=== PATIENT | male | born 1945 | race Caucasian/White ===

== ENCOUNTER → 2017-12-26 | Outpatient (CLI) | payer MEDICARE ==
[~2017-12-26] MED LIST: ASPIRIN ADULT L81 M1; FOLIC ACID0.8 MG; MOBIC15 MG; MULTIPLE VITAMI1 CAP; NORVASC5 MG; TENORMIN50 MG; ZANTAC150 MG PO; ZOCOR5 MG
[2017-12-26 11:58] LABS: CREATININE 1.14 mg/dL (0.70-1.30)
== END | disposition home or self-care (01) ==
LOC: LAB 11:12
PROVIDERS: Internal Medicine
DX: R06.02 Shortness of breath (principal)

== ENCOUNTER → 2018-01-02 | Outpatient (CLI) | payer MEDICARE | END | disposition home or self-care (01) | LOC: CT 10:09 | DX: M54.6 Pain in thoracic spine (principal); R06.02 Shortness of breath ==

== ENCOUNTER → 2018-02-20 | Outpatient (CLI) | payer MEDICARE | END | disposition home or self-care (01) | LOC: LAB 12:54 | DX: C61 Malignant neoplasm of prostate (principal) ==

== ENCOUNTER → 2018-02-27 | Outpatient (CLI) | payer MEDICARE | END | disposition home or self-care (01) | LOC: CT 14:23 | DX: M51.34 Other intervertebral disc degeneration, thoracic region (principal) ==

== ENCOUNTER → 2018-03-26 | Outpatient (CLI) | payer MEDICARE ==
[2018-03-26 08:49] LABS: BASO % 0.7 % (0.0-1.0); EOS # 0.2 10*3/uL (0.0-0.4); EOS % 3.1 % (1.0-4.0); HEMATOCRIT 42.9 % (42.0-52.0); HEMOGLOBIN 14.1 g/dl (14.0-18.0); LYMPH # 1.8 10*3/uL (1.3-4.4); LYMPH % 31.4 % (27.0-41.0); MEAN CELL VOLUME 87.7 fl (80.0-94.0); MEAN CORPUSCULAR HGB 28.8 pg (27.0-31.0); MEAN CORPUSCULAR HGB CONC 32.9 g/dl (33.0-37.0); MEAN PLATELET VOLUME 11.1 fl (9.6-12.3); MONO # 0.6 10*3/uL (0.1-1.0); MONO % 9.6 % (3.0-9.0); NEUT # 3.2 10*3/uL (2.3-7.9); PLATELET COUNT AUTOMATED 225 10*3/uL (130-400); RED BLOOD COUNT 4.89 10*6/uL (4.50-5.90); RED CELL DISTRI WIDTH 14.4 % (0-14.5); WHITE BLOOD COUNT 5.8 10*3/uL (4.8-10.8)
[2018-03-26 08:56] LABS: ALBUMIN 3.8 gm/dl (3.1-4.5); ALKALINE PHOSPHATASE 58 U/L (45-117); BUN 17 mg/dl (7-24); CHLORIDE 106 mmol/L (98-107); CHOLESTEROL 144 mg/dL (<200); CREATININE 1.22 mg/dL (0.70-1.30); FREE T4 0.95 ng/dl (0.76-1.46); HDL CHOLESTEROL 53 mg/dl (40-60); LDL CHOLESTEROL 71 mg/dL (9-159); SGOT/AST 23 IU/L (3-35); SGPT/ALT 31 U/L (12-78); SODIUM 143 mmol/L (136-145); TOTAL PROTEIN 6.8 gm/dL (6.4-8.2); TRIGLYCERIDES 98 mg/dl (<150); VLDL CHOLESTEROL 20 mg/dL (6-40)
[2018-03-26 10:14] LABS: VITAMIN D, 25-HYDROXY 35.9 ng/mL (30-100)
== END ==
LOC: LAB 07:56
PROVIDERS: Internal Medicine
DX: Z13.1 Encounter for screening for diabetes mellitus (principal); Z13.21 Encounter for screening for nutritional disorder; Z13.220 Encounter for screening for lipoid disorders; E78.2 Mixed hyperlipidemia; E55.9 Vitamin D deficiency, unspecified; R53.81 Other malaise

== ENCOUNTER → 2018-07-25 | Outpatient (CLI) | payer MEDICARE | END | disposition home or self-care (01) | LOC: MRI 09:59 | DX: M47.894 Other spondylosis, thoracic region (principal); Z85.46 Personal history of malignant neoplasm of prostate ==

== ENCOUNTER → 2019-07-11 | Outpatient (CLI) | payer MEDICARE | END | disposition home or self-care (01) | LOC: LAB 09:42 | DX: C61 Malignant neoplasm of prostate (principal) ==

== ENCOUNTER → 2020-06-03 | Outpatient (CLI) | payer MEDICARE ==
[2020-06-03 11:08] LABS: BASO % 0.6 % (0.0-1.0); EOS # 0.2 10*3/uL (0.0-0.4); EOS % 3.6 % (1.0-4.0); LYMPH # 1.9 10*3/uL (1.3-4.4); LYMPH % 29.9 % (27.0-41.0); MEAN CELL VOLUME 87.1 fl (80.0-94.0); MEAN CORPUSCULAR HGB 28.7 pg (27.0-31.0); MEAN PLATELET VOLUME 10.4 fl (9.6-12.3); MONO # 0.5 10*3/uL (0.1-1.0); MONO % 8.7 % (3.0-9.0); NEUT # 3.5 10*3/uL (2.3-7.9); PLATELET COUNT AUTOMATED 241 10*3/uL (130-400); RED BLOOD COUNT 5.05 10*6/uL (4.50-5.90); RED CELL DISTRI WIDTH 13.9 % (0-14.5); WHITE BLOOD COUNT 6.2 10*3/uL (4.8-10.8)
[2020-06-03 11:35] LABS: ALBUMIN 3.6 gm/dl (3.1-4.5); ALKALINE PHOSPHATASE 78 U/L (45-117); BUN 15 mg/dl (7-24); CHLORIDE 105 mmol/L (98-107); CHOLESTEROL 189 mg/dL (<200); CREATININE 1.19 mg/dL (0.70-1.30); FREE T4 1.01 ng/dl (0.76-1.46); HDL CHOLESTEROL 45 mg/dl (40-60); LDL CHOLESTEROL 110 mg/dL (9-159); POTASSIUM 3.8 mmol/L (3.5-5.1); SGOT/AST 21 IU/L (3-35); SGPT/ALT 27 U/L (12-78); SODIUM 139 mmol/L (136-145); TOTAL PROTEIN 7.2 gm/dL (6.4-8.2); TRIGLYCERIDES 168 mg/dl (<150); VLDL CHOLESTEROL 34 mg/dL (6-40)
== END | disposition home or self-care (01) ==
LOC: LAB 10:14
PROVIDERS: Internal Medicine
DX: Z00.00 Encounter for general adult medical examination without abnormal findings (principal); I10 Essential (primary) hypertension; E55.9 Vitamin D deficiency, unspecified

== ENCOUNTER → 2020-08-06 | Outpatient (CLI) | payer MEDICARE ==
[2020-08-06 14:16] LABS: BACTERIA TRACE; BILIRUBIN Negative; BLOOD 2+ (NEGATIVE); CLARITY Clear (CLEAR); COLOR Yellow (YELLOW); GLUCOSE Negative; KETONE Negative; LEUKO ESTERASE Negative (NEGATIVE); NITRITE Negative (NEGATIVE); SPECIFIC GRAVITY 1.025 (1.001-1.030); WBC 0-2 wbc/hpf (0-5)
[2020-08-06 14:17] LABS: MUCOUS TRACE
== END | disposition home or self-care (01) ==
LOC: LAB 13:13
PROVIDERS: ATTEND Urology
DX: C61 Malignant neoplasm of prostate (principal)

== ENCOUNTER → 2020-08-10 | Outpatient (CLI) | payer MEDICARE | END | disposition home or self-care (01) | LOC: CARD 08:56 | PROVIDERS: ATTEND Internal Medicine | DX: R00.2 Palpitations (principal) ==

== ENCOUNTER → 2020-08-25 | Outpatient (CLI) | payer MEDICARE | END | disposition home or self-care (01) | LOC: CARD 11:42 | PROVIDERS: ATTEND Internal Medicine | DX: R06.02 Shortness of breath (principal) ==

== ENCOUNTER → 2020-11-02 | Outpatient (CLI) | payer MEDICARE ==
[2020-11-02 08:46] LABS: BUN 14 mg/dl (7-24); CHLORIDE 108 mmol/L (98-107); CREATININE 1.21 mg/dL (0.70-1.30); POTASSIUM 4.2 mmol/L (3.5-5.1); SODIUM 141 mmol/L (136-145)
== END | disposition home or self-care (01) ==
LOC: LAB 08:03
PROVIDERS: ATTEND Internal Medicine Interventional Cardiology
DX: I10 Essential (primary) hypertension (principal)

== ENCOUNTER → 2020-11-27 | Outpatient (CLI) | payer MEDICARE | END | disposition home or self-care (01) | LOC: RAD 08:07 | PROVIDERS: ATTEND Internal Medicine | DX: M25.559 Pain in unspecified hip (principal) ==

== ENCOUNTER → 2020-12-04 | Outpatient (CLI) | payer MEDICARE ==
[2020-12-04 14:08] LABS: ALBUMIN 3.8 gm/dl (3.1-4.5); ALKALINE PHOSPHATASE 69 U/L (45-117); BUN 20 mg/dl (7-24); CHLORIDE 105 mmol/L (98-107); CREATININE 1.21 mg/dL (0.70-1.30); POTASSIUM 3.9 mmol/L (3.5-5.1); SGOT/AST 21 IU/L (3-35); SGPT/ALT 31 U/L (12-78); SODIUM 140 mmol/L (136-145); TOTAL PROTEIN 7.3 gm/dL (6.4-8.2)
== END | disposition home or self-care (01) ==
LOC: LAB 13:19
PROVIDERS: ATTEND Orthopaedic Surgery
DX: I10 Essential (primary) hypertension (principal); Z79.1 Long term (current) use of non-steroidal anti-inflammatories (NSAID)

== ENCOUNTER → 2021-03-15 | Outpatient (CLI) | payer MEDICARE | END | disposition home or self-care (01) | LOC: US 10:45 | PROVIDERS: ATTEND Internal Medicine | DX: N28.1 Cyst of kidney, acquired (principal) ==

== ENCOUNTER → 2021-06-04 | Outpatient (CLI) | payer MEDICARE ==
[2021-06-04 11:05] LABS: BASO % 0.6 % (0.0-1.0); EOS # 0.2 10*3/uL (0.0-0.4); EOS % 2.6 % (1.0-4.0); HEMATOCRIT 43.7 % (42.0-52.0); LYMPH # 1.7 10*3/uL (1.3-4.4); LYMPH % 23.6 % (27.0-41.0); MEAN CORPUSCULAR HGB 29.6 pg (27.0-31.0); MEAN CORPUSCULAR HGB CONC 32.5 g/dl (33.0-37.0); MEAN PLATELET VOLUME 10.7 fl (9.6-12.3); MONO # 0.6 10*3/uL (0.1-1.0); MONO % 8.5 % (3.0-9.0); NEUT # 4.5 10*3/uL (2.3-7.9); NEUT % 64.4 % (47.0-73.0); PLATELET COUNT AUTOMATED 223 10*3/uL (130-400); RED CELL DISTRI WIDTH 13.4 % (0-14.5)
[2021-06-04 11:34] LABS: ALBUMIN 3.5 gm/dl (3.1-4.5); BUN 13 mg/dl (7-24); CHLORIDE 108 mmol/L (98-107); CHOLESTEROL 177 mg/dL (<200); CREATININE 1.05 mg/dL (0.70-1.30); POTASSIUM 3.7 mmol/L (3.5-5.1); SGOT/AST 22 IU/L (3-35); SGPT/ALT 25 U/L (12-78); SODIUM 139 mmol/L (136-145); TOTAL PROTEIN 6.7 gm/dL (6.4-8.2); TRIGLYCERIDES 197 mg/dl (<150)
[2021-06-04 11:40] LABS: ALKALINE PHOSPHATASE 60 U/L (45-117); LDL CHOLESTEROL 92 mg/dL (9-159)
[2021-06-04 11:41] LABS: VITAMIN D, 25-HYDROXY 41.1 ng/mL (30-100)
== END | disposition home or self-care (01) ==
LOC: LAB 10:36
PROVIDERS: ATTEND Internal Medicine
DX: Z12.5 Encounter for screening for malignant neoplasm of prostate (principal); R53.81 Other malaise; R79.89 Other specified abnormal findings of blood chemistry; E55.9 Vitamin D deficiency, unspecified; D51.9 Vitamin B12 deficiency anemia, unspecified; E03.9 Hypothyroidism, unspecified; D52.9 Folate deficiency anemia, unspecified; Z13.0 Encounter for screening for diseases of the blood and blood-forming organs and certain disorders involving the immune mechanism; Z13.1 Encounter for screening for diabetes mellitus; Z13.21 Encounter for screening for nutritional disorder; Z13.220 Encounter for screening for lipoid disorders; Z13.228 Encounter for screening for other metabolic disorders; Z13.6 Encounter for screening for cardiovascular disorders; Z13.89 Encounter for screening for other disorder

== ENCOUNTER → 2021-10-13 | Outpatient (CLI) | payer MEDICARE | END | disposition home or self-care (01) | LOC: CARD 10:01 | PROVIDERS: ATTEND Internal Medicine | DX: R55 Syncope and collapse (principal) ==

== ENCOUNTER → 2022-03-14 | Outpatient (CLI) | payer MEDICARE ==
[2022-03-14 08:51] LABS: BASO % 0.7 % (0.0-1.0); EOS # 0.3 10*3/uL (0.0-0.4); EOS % 5.6 % (1.0-4.0); HEMATOCRIT 42.4 % (42.0-52.0); LYMPH # 1.4 10*3/uL (1.3-4.4); LYMPH % 23.8 % (27.0-41.0); MEAN CELL VOLUME 88.3 fl (80.0-94.0); MEAN CORPUSCULAR HGB 29.2 pg (27.0-31.0); MEAN PLATELET VOLUME 10.3 fl (9.6-12.3); MONO # 0.6 10*3/uL (0.1-1.0); MONO % 9.6 % (3.0-9.0); NEUT # 3.6 10*3/uL (2.3-7.9); PLATELET COUNT AUTOMATED 214 10*3/uL (130-400); RED CELL DISTRI WIDTH 13.7 % (0-14.5); WHITE BLOOD COUNT 6.1 10*3/uL (4.8-10.8)
[2022-03-14 09:13] LABS: BUN 18 mg/dl (7-24); CHLORIDE 109 mmol/L (98-107); CHOLESTEROL 177 mg/dL (<200); CREATININE 1.09 mg/dL (0.70-1.30); POTASSIUM 3.7 mmol/L (3.5-5.1); SGOT/AST 18 IU/L (3-35); SGPT/ALT 29 U/L (12-78); SODIUM 142 mmol/L (136-145); T3 UPTAKE 36 % (31-39); TOTAL PROTEIN 6.8 gm/dL (6.4-8.2); TRIGLYCERIDES 129 mg/dl (<150)
[2022-03-14 10:18] LABS: VITAMIN D, 25-HYDROXY 32.9 ng/mL (30-100)
[2022-03-14 10:28] LABS: ALKALINE PHOSPHATASE 60 U/L (45-117); LDL CHOLESTEROL 104 mg/dL (9-159)
== END | disposition home or self-care (01) ==
LOC: LAB 08:16
PROVIDERS: ATTEND Internal Medicine
DX: I10 Essential (primary) hypertension (principal); Z23 Encounter for immunization; Z12.5 Encounter for screening for malignant neoplasm of prostate; E78.2 Mixed hyperlipidemia; Z13.89 Encounter for screening for other disorder; E55.9 Vitamin D deficiency, unspecified

== ENCOUNTER → 2022-04-04 | Outpatient (CLI) | payer MEDICARE | END | disposition home or self-care (01) | LOC: US 13:30 | PROVIDERS: ATTEND Internal Medicine | DX: I87.2 Venous insufficiency (chronic) (peripheral) (principal); R60.0 Localized edema ==

== ENCOUNTER → 2022-04-13 | Outpatient (CLI) | payer MEDICARE | END | disposition home or self-care (01) | LOC: CARD 09:56 | PROVIDERS: ATTEND Internal Medicine | DX: I08.0 Rheumatic disorders of both mitral and aortic valves (principal) ==

== ENCOUNTER 2022-05-02 14:57 | Inpatient (IN) | payer MEDICARE ==
[~2022-05-02] VITALS: Ht 182.9 cm; Wt 84.4 kg
[~2022-05-02 14:57] MED LIST changes: -MOBIC15 MG; +MOBIC7.5 MG PO; +ZOCOR20 MG PO; -ZOCOR5 MG
[2022-05-02 15:05] VITALS: BP 182/84
[2022-05-02 15:28] LABS: BASO % 0.4 % (0.0-1.0); EOS # 0.1 10*3/uL (0.0-0.4); EOS % 0.8 % (1.0-4.0); LYMPH % 12.3 % (27.0-41.0); MEAN CELL VOLUME 87.9 fl (80.0-94.0); MEAN CORPUSCULAR HGB 28.7 pg (27.0-31.0); MEAN CORPUSCULAR HGB CONC 32.7 g/dl (33.0-37.0); MEAN PLATELET VOLUME 10.6 fl (9.6-12.3); MONO # 0.4 10*3/uL (0.1-1.0); MONO % 4.6 % (3.0-9.0); NEUT # 6.9 10*3/uL (2.3-7.9); NEUT % 81.7 % (47.0-73.0); PLATELET COUNT AUTOMATED 217 10*3/uL (130-400); RED BLOOD COUNT 5.12 10*6/uL (4.50-5.90); RED CELL DISTRI WIDTH 14.1 % (0-14.5); WHITE BLOOD COUNT 8.5 10*3/uL (4.8-10.8)
[2022-05-02 15:40] LABS: ACT PARTIAL THROMBO TIME 24.9 SECONDS (20.0-32.1)
[2022-05-02 15:46] LABS: ALKALINE PHOSPHATASE 58 U/L (45-117); BUN 15 mg/dl (7-24); CHLORIDE 111 mmol/L (98-107); CREATININE 1.14 mg/dL (0.70-1.30); LIPASE 222 U/L (73-393); POTASSIUM 4.1 mmol/L (3.5-5.1); SGOT/AST 16 IU/L (3-35); SGPT/ALT 21 U/L (12-78); SODIUM 143 mmol/L (136-145); TOTAL PROTEIN 6.6 gm/dL (6.4-8.2)
[2022-05-02 17:16] VITALS: BP 176/82
[2022-05-02 18:28] VITALS: BP 160/77
[2022-05-02 19:45] VITALS: BP 147/73
[2022-05-02 20:05] VITALS: BP 141/70
[2022-05-02] MEDS ORDERED: COREG12.5 M1 PO (20:29)
[2022-05-02] MEDS ORDERED: LISINOPRIL10 M1 PO (20:31)
[2022-05-03 02:00] VITALS: BP 142/78
[2022-05-03 05:23] LABS: BUN 19 mg/dl (7-24); CHLORIDE 114 mmol/L (98-107); CREATININE 1.31 mg/dL (0.70-1.30); POTASSIUM 3.6 mmol/L (3.5-5.1); SODIUM 144 mmol/L (136-145)
[2022-05-03 06:03] LABS: BASO % 0.4 % (0.0-1.0); EOS % 0.4 % (1.0-4.0); HEMATOCRIT 41.7 % (42.0-52.0); LYMPH # 1.3 10*3/uL (1.3-4.4); LYMPH % 13.8 % (27.0-41.0); MEAN CELL VOLUME 89.1 fl (80.0-94.0); MEAN CORPUSCULAR HGB 28.8 pg (27.0-31.0); MEAN CORPUSCULAR HGB CONC 32.4 g/dl (33.0-37.0); MEAN PLATELET VOLUME 11.3 fl (9.6-12.3); MONO # 0.9 10*3/uL (0.1-1.0); MONO % 9.2 % (3.0-9.0); NEUT # 7.3 10*3/uL (2.3-7.9); NEUT % 75.9 % (47.0-73.0); PLATELET COUNT AUTOMATED 210 10*3/uL (130-400); RED BLOOD COUNT 4.68 10*6/uL (4.50-5.90); RED CELL DISTRI WIDTH 14.6 % (0-14.5); WHITE BLOOD COUNT 9.6 10*3/uL (4.8-10.8)
[2022-05-03 08:00] VITALS: BP 88/36
[2022-05-03 12:00] VITALS: BP 152/70
[2022-05-03 16:00] VITALS: BP 163/70
[2022-05-03 20:00] VITALS: BP 168/79
[2022-05-04] VITALS: BP 168/70
[2022-05-04 07:06] LABS: BUN 18 mg/dl (7-24); CHLORIDE 114 mmol/L (98-107); CREATININE 1.23 mg/dL (0.70-1.30); POTASSIUM 3.3 mmol/L (3.5-5.1); SODIUM 145 mmol/L (136-145)
[2022-05-04] MEDS ORDERED: 'CLONIDINE0.1 MG PO (07:36)
[2022-05-04 08:00] VITALS: BP 178/72
[2022-05-04 12:00] VITALS: BP 169/77
== END 2022-05-04 13:14 | disposition home or self-care (01) | DRG 312 ==
LOC: ED 14:57 → 4E 18:14 → EDHOLD 18:14 → 4E 22:26
PROVIDERS: Emergency Medicine; ADMIT Internal Medicine; ATTEND Internal Medicine
DX: I95.1 Orthostatic hypotension (principal); N17.0 Acute kidney failure with tubular necrosis; E87.6 Hypokalemia; R00.1 Bradycardia, unspecified; I10 Essential (primary) hypertension; M19.90 Unspecified osteoarthritis, unspecified site; E78.2 Mixed hyperlipidemia; Z79.899 Other long term (current) drug therapy; R55 Syncope and collapse

== ENCOUNTER → 2022-06-10 | Outpatient (CLI) | payer MEDICARE ==
[~2022-06-10] MED LIST changes: +'CLONIDINE0.1 MG PO; +COREG12.5 M1 PO; +LISINOPRIL10 M1 PO
== END | disposition home or self-care (01) ==
LOC: CARD 08:31
PROVIDERS: ATTEND Internal Medicine Interventional Cardiology
DX: I10 Essential (primary) hypertension (principal); R55 Syncope and collapse

== ENCOUNTER → 2023-01-24 | Outpatient (CLI) | payer MEDICARE | END | disposition home or self-care (01) | LOC: RAD 14:32 | PROVIDERS: ATTEND Internal Medicine | DX: J90 Pleural effusion, not elsewhere classified (principal); M48.04 Spinal stenosis, thoracic region; I70.0 Atherosclerosis of aorta ==

== ENCOUNTER 2023-02-08 19:20 | Emergency (ER) | payer MEDICARE ==
[~2023-02-08] VITALS: Ht 180.3 cm; Wt 80.7 kg
[2023-02-08 19:39] LABS: BASO % 0.3 % (0.0-1.0); EOS # 0.1 10*3/uL (0.0-0.4); EOS % 0.5 % (1.0-4.0); HEMATOCRIT 42.3 % (42.0-52.0); LYMPH # 1.3 10*3/uL (1.3-4.4); LYMPH % 8.1 % (27.0-41.0); MEAN CELL VOLUME 86.2 fl (80.0-94.0); MEAN CORPUSCULAR HGB 28.5 pg (27.0-31.0); MEAN CORPUSCULAR HGB CONC 33.1 g/dl (33.0-37.0); MEAN PLATELET VOLUME 10.2 fl (9.6-12.3); MONO % 6.4 % (3.0-9.0); NEUT # 13.1 10*3/uL (2.3-7.9); NEUT % 84.4 % (47.0-73.0); PLATELET COUNT AUTOMATED 197 10*3/uL (130-400); RED BLOOD COUNT 4.91 10*6/uL (4.50-5.90); RED CELL DISTRI WIDTH 14.2 % (0-14.5); WHITE BLOOD COUNT 15.5 10*3/uL (4.8-10.8)
[2023-02-08] MEDS ORDERED: METOPROLOL TART75 MG PO (19:40)
[2023-02-08] MEDS ORDERED: NIGHTTIME SLEEP PO (19:40)
[2023-02-08] MEDS ORDERED: ZOLOFT25 MG PO (19:41)
[2023-02-08 19:54] LABS: ALKALINE PHOSPHATASE 67 U/L (46-116); BUN 14 mg/dl (9-23); CHLORIDE 103 mmol/L (98-107); CPK 179 U/L (34-171); POTASSIUM 3.6 mmol/L (3.4-5.1); SGPT/ALT 20 U/L (10-49); TOTAL PROTEIN 6.8 gm/dL (6.0-8.0)
== END 2023-02-08 21:00 | disposition home or self-care (01) ==
LOC: ED 19:20
PROVIDERS: Internal Medicine
DX: S09.90XA Unspecified injury of head, initial encounter (principal); R55 Syncope and collapse; D72.829 Elevated white blood cell count, unspecified; I10 Essential (primary) hypertension; I34.1 Nonrheumatic mitral (valve) prolapse; K21.9 Gastro-esophageal reflux disease without esophagitis; M19.90 Unspecified osteoarthritis, unspecified site; F41.9 Anxiety disorder, unspecified; E78.00 Pure hypercholesterolemia, unspecified; Z98.890 Other specified postprocedural states; W01.10XA Fall on same level from slipping, tripping and stumbling with subsequent striking against unspecified object, initial encounter; Y93.89 Activity, other specified; Y92.009 Unspecified place in unspecified non-institutional (private) residence as the place of occurrence of the external cause; Y99.8 Other external cause status

== ENCOUNTER → 2023-05-10 | Outpatient (CLI) | payer MEDICARE ==
[~2023-05-10] MED LIST changes: +METOPROLOL TART75 MG PO; +NIGHTTIME SLEEP PO; +ZOLOFT25 MG PO
== END | disposition home or self-care (01) ==
LOC: LAB 11:05
PROVIDERS: ATTEND Internal Medicine
DX: Z83.79 Family history of other diseases of the digestive system (principal)

== ENCOUNTER → 2023-05-12 | Outpatient (CLI) | payer MEDICARE | END | disposition home or self-care (01) | LOC: US 00:18 | PROVIDERS: ATTEND Internal Medicine | DX: M79.661 Pain in right lower leg (principal); M79.662 Pain in left lower leg; R60.0 Localized edema; G62.9 Polyneuropathy, unspecified; R20.2 Paresthesia of skin; R20.0 Anesthesia of skin ==

== ENCOUNTER → 2023-05-17 | Outpatient (CLI) | payer MEDICARE | END | disposition home or self-care (01) | LOC: US 00:49 | PROVIDERS: ATTEND Internal Medicine | DX: N20.0 Calculus of kidney (principal); N28.1 Cyst of kidney, acquired; R79.89 Other specified abnormal findings of blood chemistry ==

== ENCOUNTER → 2023-05-29 | Outpatient (CLI) | payer MEDICARE | END | disposition home or self-care (01) | LOC: MRI 01:23 | PROVIDERS: ATTEND Internal Medicine | DX: N28.1 Cyst of kidney, acquired (principal); R93.41 Abnormal radiologic findings on diagnostic imaging of renal pelvis, ureter, or bladder ==

== ENCOUNTER → 2023-07-14 | Outpatient (CLI) | payer MEDICARE | END | disposition home or self-care (01) | LOC: MRI 01:26 | PROVIDERS: ATTEND Internal Medicine | DX: M16.11 Unilateral primary osteoarthritis, right hip (principal) ==

== ENCOUNTER → 2023-09-08 | Outpatient (CLI) | payer MEDICARE ==
[2023-09-08 08:39] LABS: BASO % 0.5 % (0.0-1.0); EOS # 0.2 10*3/uL (0.0-0.4); EOS % 3.5 % (1.0-4.0); LYMPH # 1.5 10*3/uL (1.3-4.4); LYMPH % 23.9 % (27.0-41.0); MEAN CELL VOLUME 91.8 fl (80.0-94.0); MEAN CORPUSCULAR HGB 30.1 pg (27.0-31.0); MEAN CORPUSCULAR HGB CONC 32.8 g/dl (33.0-37.0); MEAN PLATELET VOLUME 10.8 fl (9.6-12.3); MONO # 0.5 10*3/uL (0.1-1.0); MONO % 7.9 % (3.0-9.0); NEUT % 63.9 % (47.0-73.0); PLATELET COUNT AUTOMATED 168 10*3/uL (130-400); RED BLOOD COUNT 5.01 10*6/uL (4.50-5.90); WHITE BLOOD COUNT 6.3 10*3/uL (4.8-10.8)
[2023-09-08 09:08] LABS: ALKALINE PHOSPHATASE 63 U/L (46-116); BUN 14 mg/dl (9-23); CHLORIDE 108 mmol/L (98-107); POTASSIUM 4.3 mmol/L (3.4-5.1); SGPT/ALT 22 U/L (5-49); TOTAL PROTEIN 6.6 gm/dL (6.0-8.0)
[2023-09-09 09:07] LABS: TOTAL PROTEIN, SERUM 6.4 g/dL (6.0-8.5)
[2023-09-11 14:07] LABS: A/G RATIO 1.4 (0.7-1.7); ALBUMIN 3.7 g/dL (2.9-4.4); ALPHA-1-GLOBULIN 0.2 g/dL (0.0-0.4); ALPHA-2-GLOBULIN 0.7 g/dL (0.4-1.0); GAMMA GLOBULIN 0.8 g/dL (0.4-1.8); GLOBULIN, TOTAL 2.7 g/dL (2.2-3.9); M-SPIKE Not Observed g/dL (Not Observed)
[2023-09-13 17:06] LABS: METHYLMALONIC ACID 165 nmol/L (0-378)
== END | disposition home or self-care (01) ==
LOC: LAB 08:18
PROVIDERS: ATTEND Psychiatry & Neurology Neurology
DX: G62.9 Polyneuropathy, unspecified (principal); Z79.899 Other long term (current) drug therapy

== ENCOUNTER 2023-12-08 17:43 | Emergency (ER) | payer MEDICARE ==
[~2023-12-08] VITALS: Ht 182.8 cm; Wt 86.2 kg
[2023-12-08] MEDS ORDERED: OMEPRAZOLE40 MG PO (22:40)
[2023-12-08] MEDS ORDERED: LOPRESSOR50 M1 PO (22:41)
[2023-12-08] MEDS ORDERED: ROPINIROLE HYDRO1 MG PO (22:41)
[2023-12-08] MEDS ORDERED: LYRICA75 M1 PO (22:41)
[2023-12-10] MEDS ORDERED: LISINOPRIL20 MG PO (17:40)
[2023-12-10] MEDS ORDERED: AMLODIPINE BESYL5 MG PO (17:40)
== END 2023-12-08 19:23 | disposition left against medical advice (07) ==
LOC: ED 17:43
DX: R03.0 Elevated blood-pressure reading, without diagnosis of hypertension (principal); Z53.21 Procedure and treatment not carried out due to patient leaving prior to being seen by health care provider

== ENCOUNTER → 2023-12-13 | Outpatient (CLI) | payer MEDICARE ==
[~2023-12-13] MED LIST changes: +AMLODIPINE BESYL5 MG PO; +LISINOPRIL20 MG PO; +LOPRESSOR50 M1 PO; +LYRICA75 M1 PO; +OMEPRAZOLE40 MG PO; +ROPINIROLE HYDRO1 MG PO
[2023-12-13 16:23] LABS: BUN 10 mg/dl (9-23); CHLORIDE 105 mmol/L (98-107); POTASSIUM 3.8 mmol/L (3.4-5.1)
== END | disposition home or self-care (01) ==
LOC: LAB 15:44
PROVIDERS: ATTEND Internal Medicine
DX: I10 Essential (primary) hypertension (principal); E78.2 Mixed hyperlipidemia

== ENCOUNTER → 2024-01-04 | Outpatient (CLI) | payer MEDICARE | END | disposition home or self-care (01) | LOC: US 07:19 | PROVIDERS: ATTEND Internal Medicine | DX: K76.0 Fatty (change of) liver, not elsewhere classified (principal); N28.1 Cyst of kidney, acquired; N20.0 Calculus of kidney ==

== ENCOUNTER → 2024-01-23 | Outpatient (CLI) | payer MEDICARE ==
[2024-01-23 15:20] LABS: POTASSIUM 4.4 mmol/L (3.4-5.1)
== END | disposition home or self-care (01) ==
LOC: LAB 14:35
PROVIDERS: ATTEND Internal Medicine
DX: I10 Essential (primary) hypertension (principal); E78.2 Mixed hyperlipidemia; E87.6 Hypokalemia

== ENCOUNTER → 2024-02-05 | Outpatient (CLI) | payer MEDICARE ==
[~2024-02-05] MED LIST changes: +PAROXETINE10 MG PO; +SIMVASTATIN20 MG PO; +TRIAMTERENE-HC1 EACH PO
[2024-02-05 13:54] LABS: BUN 17 mg/dl (9-23); CHLORIDE 106 mmol/L (98-107); POTASSIUM 3.7 mmol/L (3.4-5.1)
== END | disposition home or self-care (01) ==
LOC: LAB 12:53
PROVIDERS: ATTEND Internal Medicine
DX: Z13.0 Encounter for screening for diseases of the blood and blood-forming organs and certain disorders involving the immune mechanism (principal)

== ENCOUNTER 2024-04-25 21:03 | Emergency (ER) | payer MEDICARE ==
[~2024-04-25] VITALS: Ht 182.8 cm; Wt 86.2 kg
[2024-04-25] MEDS ORDERED: Ketorolac Tromethamine 30 MG/ML VIAL IM ONE (21:25)
== END 2024-04-25 23:03 | disposition home or self-care (01) ==
LOC: ED 21:03
DX: M79.675 Pain in left toe(s) (principal); L53.9 Erythematous condition, unspecified; I10 Essential (primary) hypertension; Z79.899 Other long term (current) drug therapy

== ENCOUNTER 2025-07-17 11:20 | Emergency (ER) | payer MEDICARE ==
[~2025-07-17] VITALS: Ht 182.8 cm; Wt 86.2 kg
[2025-07-17] MEDS ORDERED: CIPROFLOXACIN500 M4 PO (11:43)
[2025-07-17 12:16] LABS: BASO # 0.0 10*3/uL (0.0-0.1); BASO % 0.7 % (0.0-1.0); EOS # 0.3 10*3/uL (0.0-0.4); EOS % 4.5 % (1.0-4.0); MEAN CELL VOLUME 86.5 fl (80.0-94.0); MEAN CORPUSCULAR HGB 28.5 pg (27.0-31.0); MEAN PLATELET VOLUME 10.5 fl (9.6-12.3); MONO # 0.6 10*3/uL (0.1-1.0); MONO % 9.4 % (3.0-9.0); NEUT # 3.8 10*3/uL (2.3-7.9); NEUT % 65.2 % (47.0-73.0); NUCLEATED RED BLOOD CELL 0.0 % (0.0-0.0); NUCLEATED RED BLOOD CELL 0.0 10*3/uL (0.0-0.0); PLATELET COUNT AUTOMATED 293 10*3/uL (130-400); RED CELL DISTRI WIDTH 14.8 % (0-14.5)
[2025-07-17 12:47] LABS: BUN 17 mg/dl (9-23); CPK 364 U/L (34-171); SGPT/ALT 31 U/L (5-49)
[2025-07-17] MEDS ORDERED: SODIUM CHLORIDE 0.9% 1,000 ML IV ONE (13:05)
[2025-07-17 13:20] LABS: BILIRUBIN Negative (Negative); BLOOD 1+ (Negative); CLARITY Clear (Clear); COLOR Yellow (Yellow); KETONE Trace (Negative); LEUKO ESTERASE Negative (Negative); NITRITE Negative (Negative); PH 5.5 (4.5-8.0); SPECIFIC GRAVITY 1.010 (1.001-1.030); UROBILINOGEN 0.2 E.U./dl (0.0-1.0)
[2025-07-17 13:30] LABS: BACTERIA TRACE
== END 2025-07-17 15:12 | disposition home or self-care (01) ==
LOC: ED 11:20
PROVIDERS: Emergency Medicine
DX: N39.0 Urinary tract infection, site not specified (principal); R53.83 Other fatigue; R53.1 Weakness; I10 Essential (primary) hypertension; E78.00 Pure hypercholesterolemia, unspecified; K21.9 Gastro-esophageal reflux disease without esophagitis; Z79.899 Other long term (current) drug therapy; Z98.890 Other specified postprocedural states